=== PATIENT | male | born 1965 | race Caucasian/White ===

== ENCOUNTER → 2017-06-13 16:22 | Outpatient (CLI) | payer OTHER, SELFPAY ==
[2017-06-13 17:40] LABS: Absolute Lymphocyte Count 2.52 X10^3/ul (0.83-4.51); Absolute Neutrophil Count 4.5 X10^3/uL (2.0-7.7); Basophil# 0.03 X10^3/uL; Basophil% 0.4 % (0-1); Eosinophil# 0.14 X10^3/uL; Eosinophils% 1.9 % (0-5); Hematocrit 40.2 % (40-54); Hemoglobin 13.8 g/dl (13.0-16.5); Lymphocyte # 2.52 X10^3/ul (4.0); Lymphocyte % 33.3 % (19-41); Mean Corp Hgb Conc 34.3 g/gl (32-36); Mean Corpuscular Hgb 29.9 pg (27.0-32.0); Mean Corpuscular Volume 87.2 fL (80-94); Mean Platelet Vol. 8.7 fl (6.2-12.0); Monocyte% 5.3 % (0-10); Neutrophil # 4.45 X10^3/uL (2.7-7.7); Neutrophil % 58.8 % (47-70); POSITIVE COUNT NO; POSITIVE DIFFERENTIAL NO; POSITIVE MORPHOLOGY NO; Platelet Count 311 K/mm3 (150-450); RBC Distribution Width CV 12.9 % (11.6-14.6); RBC Distribution Width SD 40.1 fl (35.1-43.9); Red Blood Count 4.61 M/mm3 (4.6-6.2); White Blood Count 7.6 K/mm3 (4.4-11.0)
[2017-06-13 18:12] LABS: Anion Gap 7 (5-15); BUN 14 mg/dL (7-18); BUN/Creat Ratio 17.2 RATIO (10-20); Calcium,Total 8.9 mg/dL (8.5-10.1); Chloride 101 mmol/L (98-107); Creatinine, Serum 0.81 mg/dL (0.70-1.30); EST Glomerular Filtration Rate 107 mL/min (>60); Est Glom Filt Rate - Afr Amer 130 mL/min (>60); Glucose 80 mg/dL (74-106); Magnesium 2.3 mg/dL (1.6-2.6); Potassium 4.1 mmol/L (3.5-5.1); Sodium Level 138 mmol/L (136-145); T4 Total, Thyroxin 8.9 ug/dL (4.5-12.1); Thyroid Stim Hormone (TSH) 5.82 uIU/mL (0.358-3.74)
== END ==
PROVIDERS: Family Provider Family Medicine; PCP Family Medicine; Visit Provider Physician Assistant Medical
DX: I48.0 Paroxysmal atrial fibrillation (principal); I10 Essential (primary) hypertension
CPT/HCPCS: 36415; 80048; 83735; 84436; 84443; 85025

== ENCOUNTER 2017-06-16 22:36 | Emergency (ER) | payer OTHER, SELFPAY ==
[2017-06-16 22:38] VITALS: BP 155/87; PULSE 116; RESP 25; TEMP 36.4; O2SAT 97; BMI 38.0
[2017-06-16 22:39] VITALS: PULSE 97
--- NOTE | 2017-06-16 23:00 | EKG12_ITS ---
Test Reason : CP Blood Pressure : / mmHG Vent. Rate : 126 BPM Atrial Rate : 122 BPM P-R Int : 000 ms QRS Dur : 102 ms QT Int : 352 ms P-R-T Axes : 000 029 -31 degrees QTc Int : 509 ms Atrial fibrillation Nonspecific T wave abnormality Abnormal ECG Confirmed by TOMASA GRULLON, CHUCK ([id number]), film or videotape editor ALEM CAI ([id number]) on 06/18/2017 1:42:38 PM Referred By: Gris Anglin Confirmed By:CHUCK RANDOLPH MD
--- NOTE | 2017-06-16 23:00 | RAD_ITS ---
STUDY: X-RAY CHEST REASON FOR EXAM: Male, 51 years old. Chest pain TECHNIQUE: AP portable COMPARISON: July 13, 2014 FINDINGS: The lungs are clear and expanded. There is no demonstrated pleural abnormality. Normal size heart. Normal mediastinum and eli. Normal visualized pulmonary arteries. Normal visualized aortic arch and descending thoracic aorta. Normal visualized thoracic spine. Normal visualized ribs, clavicles, and shoulders. There is no demonstrated abnormality of the visualized soft tissue structures of the upper abdomen. RAD/Chest 1 View (Portable) IMPRESSION: No acute cardiopulmonary process. Electronically Signed: Bhavani Zeng MD at 23:35 EDT Tel , Service support ,
--- NOTE | 2017-06-16 23:06 | ED.VISSUMM ---
- ER Visit Summary Date of Service: 06/16/17 Chief Complaint: [] Chest pain/flutter History of Present Illness: The patient is a 51 M [] complaining of chest tightness and palpitations consistent with his previous history of atrial fibrillation. Patient reports he felt himself go from normal sinus rhythm to atrial fibrillation while watching a college final for basketball game at a local tavern while consuming alcohol. Denies shortness of breath. Does report that he is on Xarelto for previous history of atrial fibrillation. Denies any other complaints at this time. Physical Examination: [] Afebrile. Heart rate in the 115 average rate. Remainder of vitals unremarkable. Morbidly obese male in no acute distress. Cardiovascular exam reveals irregularly irregular rhythm. Lungs clear to auscultation. Abdomen is obese, soft, nontender. No lower extremity edema. Remainder of exam is unremarkable. Test Results: [] EKG is consistent with atrial fibrillation with a rate of 126. No ischemic or ectopic manifestations on the EKG. Chest x-ray: Negative Labs: Negative (include CBC, BMP, troponin). Repeat EKG: Normal sinus rhythm with a rate of 84. Emergency Department Course and Treatment: [] Patient placed on ceo and founder with oxygen. He received 2 sublingual nitroglycerin for chest pressure. Patient given 20 mg IV Cardizem bolus.This was unsuccessful in cardioverting the patient. Case was discussed with the patient's bung dropper. He had no objection to us electrically cardioverting the patient. Patient received 4 mg of Versed for procedural sedation and received 100 J via synchronized cardioversion. Repeat EKG reveals normal sinus rhythm with a rate of 84. Patient tolerated the procedure well. Was observed for an additional 45 minutes and was fully conscious. Reports his symptoms had resolved. Treatment Plan: [] Follow-up with PCP and bung dropper. Return if symptoms recur. Disposition: [] Discharge, stable. Impression: [] Atrial fibrillation Procedural sedation by ED physician Synchronous cardioversion by ED physician This note was generated with [employer] dictation software. It may contain incorrect words, spelling, and punctuation that were not noted in review of the chart prior to signing ED Disposition - Plan for ED Patient: Chief Complaint: Chest Pain Referrals: Win Beaver MD [Primary Care Provider] -
--- NOTE | 2017-06-16 23:10 | ED.DCSUM_ITS ---
- ER Visit Summary Date of Service: 06/16/17 Chief Complaint: [] Chest pain/flutter History of Present Illness: The patient is a 51 M [] complaining of chest tightness and palpitations consistent with his previous history of atrial fibrillation. Patient reports he felt himself go from normal sinus rhythm to atrial fibrillation while watching a college final for basketball game at a local tavern while consuming alcohol. Denies shortness of breath. Does report that he is on Xarelto for previous history of atrial fibrillation. Denies any other complaints at this time. Physical Examination: [] Afebrile. Heart rate in the 115 average rate. Remainder of vitals unremarkable. Morbidly obese male in no acute distress. Cardiovascular exam reveals irregularly irregular rhythm. Lungs clear to auscultation. Abdomen is obese, soft, nontender. No lower extremity edema. Remainder of exam is unremarkable. Test Results: [] EKG is consistent with atrial fibrillation with a rate of 126. No ischemic or ectopic manifestations on the EKG. Chest x-ray: Negative Labs: Negative (include CBC, BMP, troponin). Repeat EKG: Normal sinus rhythm with a rate of 84. Emergency Department Course and Treatment: [] Patient placed on cardiac nurse specialist with oxygen. He received 2 sublingual nitroglycerin for chest pressure. Patient given 20 mg IV Cardizem bolus.This was unsuccessful in cardioverting the patient. Case was discussed with the patient's re etcher. He had no objection to us electrically cardioverting the patient. Patient received 4 mg of Versed for procedural sedation and received 100 J via synchronized cardioversion. Repeat EKG reveals normal sinus rhythm with a rate of 84. Patient tolerated the procedure well. Was observed for an additional 45 minutes and was fully conscious. Reports his symptoms had resolved. Treatment Plan: [] Follow-up with PCP and re etcher. Return if symptoms recur. Disposition: [] Discharge, stable. Impression: [] Atrial fibrillation Procedural sedation by ED physician Synchronous cardioversion by ED physician This note was generated with G[employer] dictation software. It may contain incorrect words, spelling, and punctuation that were not noted in review of the chart prior to signing ED Disposition - Plan for ED Patient: Chief Complaint: Chest Pain Referrals: Win Beaver MD [Primary Care Provider] -
[2017-06-16 23:17] LABS: Absolute Lymphocyte Count 3.71 X10^3/ul (0.83-4.51); Absolute Neutrophil Count 4.4 X10^3/uL (2.0-7.7); Basophil# 0.02 X10^3/uL; Basophil% 0.2 % (0-1); Eosinophil# 0.16 X10^3/uL; Eosinophils% 1.8 % (0-5); Hematocrit 38.7 % (40-54); Hemoglobin 13.6 g/dl (13.0-16.5); Lymphocyte # 3.71 X10^3/ul (4.0); Lymphocyte % 41.8 % (19-41); Mean Corp Hgb Conc 35.1 g/gl (32-36); Mean Corpuscular Volume 85.4 fL (80-94); Mean Platelet Vol. 8.5 fl (6.2-12.0); Monocyte# 0.58 X10^3/uL; Monocyte% 6.5 % (0-10); Neutrophil # 4.38 X10^3/uL (2.7-7.7); Neutrophil % 49.4 % (47-70); Platelet Count 297 K/mm3 (150-450); RBC Distribution Width CV 12.8 % (11.6-14.6); Red Blood Count 4.53 M/mm3 (4.6-6.2); White Blood Count 8.9 K/mm3 (4.4-11.0)
[2017-06-16 23:18] LABS: POSITIVE COUNT NO; POSITIVE DIFFERENTIAL NO; POSITIVE MORPHOLOGY NO
[2017-06-16 23:23] VITALS: O2SAT 97
[2017-06-16 23:24] LABS: Anion Gap 10 (5-15); BUN 13 mg/dL (7-18); BUN/Creat Ratio 18.5 RATIO (10-20); Calcium,Total 7.8 mg/dL (8.5-10.1); Chloride 104 mmol/L (98-107); EST Glomerular Filtration Rate 126 mL/min (>60); Est Glom Filt Rate - Afr Amer 153 mL/min (>60); Estimated Creatinine Clearance 148.42 ml/min; Glucose 137 mg/dL (74-106); Potassium 3.6 mmol/L (3.5-5.1); Sodium Level 137 mmol/L (136-145)
[2017-06-16] MEDS: dilTIAZem 25 MG/5 ML Vial 20 MG IV BOLUS (23:27)
[2017-06-16 23:40] VITALS: BP 121/86; PULSE 86; RESP 13; O2SAT 97
[2017-06-16 23:48] VITALS: BP 116/75; PULSE 81
[2017-06-16 23:55] VITALS: BP 121/70; PULSE 92
[2017-06-17] VITALS (7 sets, daily range): BP systolic 117–129; BP diastolic 74–84; PULSE 73–103; RESP 12–19; O2SAT 95–97
[2017-06-17] MEDS: Midazolam 5 MG/ML Syringe 4 MG IV (00:11)
--- NOTE | 2017-06-17 00:18 | EKG12_ITS ---
Test Reason : REPEAT Blood Pressure : / mmHG Vent. Rate : 084 BPM Atrial Rate : 084 BPM P-R Int : 162 ms QRS Dur : 094 ms QT Int : 396 ms P-R-T Axes : 022 020 008 degrees QTc Int : 467 ms Normal sinus rhythm Normal ECG Confirmed by CHUCK RANDOLPH MD ([id number]), videotape editor ALEM CAI ([id number]) on 06/18/2017 1:42:20 PM Referred By: Gris Anglin Confirmed By:CHUCK RANDOLPH MD
--- NOTE | 2017-06-17 00:29 | ED.DEP ---
ED Disposition - Plan for ED Patient: Disposition: Home or Assisted Living Chief Complaint: Chest Pain Instructions: Discharge Instructions for Atrial Fibrillation Referrals: Win Beaver MD [Primary Care Provider] -
== END 2017-06-17 01:37 | disposition home or self-care (01) ==
PROVIDERS: Emergency Provider Emergency Medicine; Family Provider Family Medicine; PCP Family Medicine
DX: I48.91 Unspecified atrial fibrillation (principal); I10 Essential (primary) hypertension; E78.00 Pure hypercholesterolemia, unspecified; E66.01 Morbid (severe) obesity due to excess calories; Z79.01 Long term (current) use of anticoagulants; Z79.899 Other long term (current) drug therapy
CPT/HCPCS: 71045; 80048; 84484; 85025; 92960; 93005; 96374; 99285; J7050; A4216

== ENCOUNTER → 2017-06-22 06:01 | Outpatient (CLI) | payer OTHER, SELFPAY ==
--- NOTE | 2017-06-22 13:44 | STRESSREP ---
Stress Test Report Exercise myocardial perfusion stress test. 51-year-old man with a history of paroxysmal atrial fibrillation. Stress protocol: Resting EKG demonstrates sinus rhythm with a rate of 4 76 bpm resting blood pressure is 138/88 mmHg. The patient exercised according to the regular Joshua protocol for total duration of 9 minutes and 30 seconds. The maximum heart rate attained was 176 bpm which was 102% of the maximum predicted heart rate the maximum workload attained was 10.9 metabolic equivalents. He maintained sinus rhythm throughout the recording. At rest there were no ST or T-wave changes noted suggest ischemia at peak exercise upsloping ST changes only were noted with no meet the criteria for ischemia. No clinical angina was noted the test was terminated due to shortness of breath. Blood pressure was 198/88 mmHg. Myocardial perfusion protocol: 14.8 mCi of technetium 99m sestamibi was injected at rest. The patient exercised according to regular Joshua protocol for total duration of 9-1/2 minutes. At peak exercise 44.5 mCi of technetium 99m sestamibi was injected stress images were obtained stress and rest images were reconstructed and compared in the short axis vertical long and horizontal long axis. Gated images were also obtained. Perfusion SPECT analysis: Review of the stress images demonstrate normal uptake of tracer noted in all areas of the myocardium. The resting images similarly demonstrated normal uptake of tracer noted in all areas of the myocardium. No previous infarct is noted no ischemia is present. Gated SPECT analysis: The gated ejection fraction is 69%. Conclusion: Normal exercise myocardial perfusion stress test at a high workload. Excellent functional aerobic capacity. Preserved ejection fraction.
== END ==
PROVIDERS: Family Provider Family Medicine; PCP Family Medicine; Visit Provider Physician Assistant Medical
DX: I48.0 Paroxysmal atrial fibrillation (principal); I10 Essential (primary) hypertension
CPT/HCPCS: 78452; 93017; A9500; A4216

== ENCOUNTER → 2020-01-16 10:25 | Outpatient (CLI) | payer OTHER, SELFPAY ==
[2019-12-23 16:00] VITALS: BMI 37.7
--- NOTE | 2020-01-16 10:26 | STEWCON_ITS ---
Reason For Study: Paroxysmal Atrial Fibrillation Stress Results Protocol: Joshua Protocol WITH DEFINITY Maximum Predicted HR: 168 bpm Target HR: 143 bpm % Maximum Predicted HR: 88 % DurationHeart Rate Stage (mm:ss) (bpm) BP Comment Baseline 82 148/90No Chest Pain; 3 ML Diluted Definity Joshua Protocol Stage I 3:00 103 152/88No Chest Pain Joshua Protocol Stage II 3:00 122 160/78No Chest Pain Joshua Protocol Stage III 3:00 139 164/72No Chest Pain; Mild Dyspnea Joshua Protocol Stage IV 0:45 148 / No Chest Pain; Mild Dyspnea Recovery 109 130/72No Chest Pain Stress Duration: 9:45 mm:ss Maximum Stress HR: 148 bpm METS: 12 Baseline Echocardiogram Findings Stress Echo Wall motion Data Resting WM Intermediate WM Stress WM Interpretation Summary Exercise stress echo. 54-year-old man with a history of hypertension and atrial fibrillation. Stress protocol: Resting EKG demonstrates sinus rhythm with a rate of 82 bpm normal intervals are noted resting blood pressure is 148/90 mmHg. The patient exercised according to the regular Joshua protocol for a total duration of 9 minutes and 45 seconds. The maximum heart rate attained was 150 bpm which was 89% of maximum predicted heart rate the maximum workload was 12.5 metabolic equivalents. At rest there were no ST or T wave changes noted suggest ischemia peak exercise upsloping ST changes were noted with no meet the criteria for ischemia. The test was terminated due to the target heart rate being achieved. The resting blood pressure is 148/90 mmHg the peak blood pressure 164/72 mmHg. Stress echocardiographic images. Resting echocardiographic images obtained with Definity demonstrated an ejection fraction of 65%. With exercise there was improvement in the left ventricular systolic function with a peaking ejection fraction approximately 75%. No wall motion abnormalities were noted to suggest ischemia. Conclusion: Normal exercise stress echocardiogram with no EKG or echocardiographic criteria for ischemia at a high workload. Preserved ejection fraction. Excellent functional aerobic capacity. Ordering Physician: Lamin Ann Referring Physician: Win Beaver Performed By: Mendel Marinelli RCS
== END ==
PROVIDERS: PCP Family Medicine; Referring Provider Internal Medicine Cardiovascular Disease; Visit Provider Internal Medicine Cardiovascular Disease
DX: I48.0 Paroxysmal atrial fibrillation (principal)
CPT/HCPCS: 93017; 93350; Q9957; A4216; C8928

== ENCOUNTER → 2020-01-19 09:15 | Outpatient (CLI) | payer OTHER, SELFPAY ==
[2019-12-23 16:00] VITALS: BMI 37.7
--- NOTE | 2020-01-19 09:15 | LES_PTH ---
PATIENT: ALVIN JENSEN LOC: [facility] U#:[id number] AGE/SX: 59/M ROOM: RE01/19/[address]: Dr. Huy Crain MD : [id number] BED: DIS: SPEC #: [id number] RECD: 01/19/20 12:02 STATUS: PA ELIZABETH #: [id number] RUBI: 01/19/20 09:[address]: Huy Crain DEPT: SURGICAL PATHOLOGY RECD BY: Ricardo Camacho ENTERED: 01/19/20 13:28 SP TYPE: Lesion OTHR DR: Dr. Win Beaver MD Tissues: Palate, NOS Procedures: Surgery Specimen Level IV HEADER OPERATION: Excision palate lesion PRE-OP DIAGNOSIS: Papilloma of palate TISSUE SUBMITTED: Left soft palate MICROSCOPIC DIAGNOSIS Left soft palate lesion, excision: Fragments of squamous papilloma. SJ:jaclyn 01/20/20 MICROSCOPIC DESCRIPTION Slides are reviewed. GROSS DESCRIPTION Received in fixative is one container labeled with the patient's name and designated left soft palate. The specimen consists of two irregular fragments of light hairston soft tissue that in aggregate measure 0.6 x 0.3 x 0.1 cm. The specimen is totally submitted in one cassette. / SJ:jaclyn 01/19/20 TC:1 CPT: 57159
== END ==
PROVIDERS: PCP Family Medicine; Referring Provider Otolaryngology; Visit Provider Otolaryngology
DX: D10.39 Benign neoplasm of other parts of mouth (principal)
CPT/HCPCS: 88305

== ENCOUNTER → 2024-01-09 | Outpatient (CLI) | payer OTHER, SELFPAY ==
[2024-01-09 15:29] LABS: Absolute Lymphocyte Count 1.02 X10^3/uL (0.83-4.51); Absolute Neutrophil Count 6.1 X10^3/uL (2.0-7.7); Basophil# 0.06 X10^3/uL; Basophil% 0.7 % (0-1); Eosinophil# 0.16 X10^3/uL; Hemoglobin 11.7 g/dL (13.0-16.5); Lymphocyte # 1.02 X10^3/ul (0.83-4.51); Lymphocyte % 12.5 % (19-41); Mean Corp Hgb Conc 32.5 g/dL (32-36); Mean Corpuscular Volume 89.3 fL (80-94); Mean Platelet Vol. 8.5 fl (6.2-12.0); Monocyte# 0.61 X10^3/uL; Monocyte% 7.5 % (0-10); NRBC Flagged by Analyzer 0 % (0-5); Neutrophil # 6.14 X10^3/uL (2.7-7.7); Neutrophil % 75.6 % (47-70); Platelet Count 217 K/mm3 (150-450); RBC Distribution Width CV 13.8 % (11.6-14.6); RBC Distribution Width SD 44.8 fl (35.1-43.9); Red Blood Count 4.03 M/mm3 (4.6-6.2); White Blood Count 8.1 K/mm3 (4.4-11.0)
[2024-01-09 15:57] LABS: Anion Gap 8 (5-15); BUN 14 mg/dL (7-18); BUN/Creat Ratio 15.2 RATIO (10-20); Calcium,Total 8.6 mg/dL (8.5-10.1); Chloride 105 mmol/L (98-107); Creatinine, Serum 0.92 mg/dL (0.70-1.30); EST Glomerular Filtration Rate 91 mL/min (>60); Est Glom Filt Rate - Afr Amer 110 mL/min (>60); Glucose 92 mg/dL (74-106); Potassium 3.8 mmol/L (3.5-5.1); Sodium Level 138 mmol/L (136-145)
[2024-01-10 03:15] LABS: BNP,B-Type NATRIURETIC PEPTIDE 49.6 pg/mL (0-100)
== END | disposition home or self-care (01) ==
LOC: LAB 14:12
PROVIDERS: PCP Family Medicine; Referring Provider Nurse Practitioner Gerontology; Visit Provider Nurse Practitioner Gerontology
DX: R06.09 Other forms of dyspnea (principal)
CPT/HCPCS: 36415; 80048; 83880; 85025

== ENCOUNTER → 2024-01-30 | Outpatient (CLI) | payer OTHER, SELFPAY ==
--- NOTE | 2024-01-30 06:25 | ECHOCS_ITS ---
Reason For Study: DYSPNEA/SOB Procedure This was a 2D Doppler, Color Flow transthoracic echocardiogram. Exam performed in department. Left Ventricle Normal LV size. Left ventricular systolic function is normal. The left ventricular ejection fraction is 60 %. No regional wall motion abnormalities noted. Right Ventricle Normal RV size. Normal systolic function. Atria Normal left atrium. Normal right atrium. Mitral Valve Normal mitral valve. Tricuspid Valve Normal tricuspid valve. Aortic Valve The aortic valve is not well visualized. Pulmonic Valve The pulmonic valve is not well visualized. Great Vessels Normal aortic root. The pulmonary artery is normal size. Normal inferior vena cava. Pericardium/Pleural No pericardial effusion. Medication Diluted definity 2.0ml given slow IV push to enhance endocardial definition. MMode/2D Measurements & Calculations LVIDd: 5.3 cm IVSd: 1.1 cm Ao root diam: 3.5 cm LVIDs: 3.1 cm LVPWd: 1.0 cm RVDd: 3.7 cm FS: 40.6 % asc Aorta Diam: 3.8 cm LAV(MOD-bp): 67.6 ml LVAd ap4: 39.1 cm2 LAV(MOD-bp) Indexed: 26.1 ml/m2 LVLd ap4: 9.5 cm LAV(MOD-sp2): 62.5 ml EDV(MOD-sp4): 133.6 ml LAV(MOD-sp4): 73.3 ml EDV(sp4-el): 136.0 ml LVAs ap4: 22.1 cm2 LVLs ap4: 8.3 cm ESV(MOD-sp4): 50.1 ml ESV(sp4-el): 49.9 ml EF(MOD-sp4): 62.5 % EF(sp4-el): 63.3 % SV(MOD-sp4): 83.5 ml SV(sp4-el): 86.0 ml LA A4 area: 25.1 cm2 SI(MOD-sp4): 32.3 ml/m2 LA dimension(2D): 4.5 cm RA A4 area: 19.4 cm2 TAPSE: 2.6 cm Time Measurements MV dec time: 0.19 sec Doppler Measurements & Calculations MV E max facundo: 87.8 cm/sec Lat Peak E' Facundo: 12.8 cm/sec Med Peak E' Facundo: 11.9 cm/sec MV A max facundo: 85.3 cm/sec E/E' lat: 6.8 E/E' med: 7.4 MV E/A: 1.0 MV V2 max: 101.0 cm/sec MV P1/2t max facundo: 109.0 cm/sec Ao V2 max: 143.3 cm/sec MV max P.1 mmHg MV P1/2t: 63.4 msec Ao max P.2 mmHg MV V2 mean: 58.1 cm/sec MV dec slope: 503.6 cm/sec2 Ao V2 mean: 94.7 cm/sec MV mean P.6 mmHg MVA(P1/2t): 3.5 cm2 Ao mean P.0 mmHg MV V2 VTI: 23.7 cm Ao V2 VTI: 26.1 cm AV (velocity ratio): 0.93 LV V1 max: 104.3 cm/sec PA V2 max: 127.4 cm/sec TR max facundo: 244.0 cm/sec LV V1 max P.4 mmHg PA V2 mean: 89.5 cm/sec TR max P.8 mmHg LV V1 mean P.5 mmHg LV V1 mean: 74.9 cm/sec LV V1 VTI: 24.2 cm ECHO/Echo Complete W/ Contrast Interpretation Summary Normal LV size. Left ventricular systolic function is normal. The left ventricular ejection fraction is 60 %. Structurally normal valves. Ordering Physician: Teresa Hernandez Referring Physician: Jef Jones Performed By: Caitlyn Elena RDCS, RVT
--- NOTE | 2024-01-30 17:20 | STRESSREP ---
Stress Test Report Exercise myocardial perfusion stress test. 58-year-old man with a history of atrial fibrillation on flecainide therapy Stress protocol: Resting EKG demonstrates normal sinus rhythm with a rate of 74 bpm resting blood pressure is 148/82 mmHg. The patient exercised according to the regular Joshua protocol for a total duration of 8 minutes attaining a maximum heart rate of 139 bpm which was 84% of maximum predicted heart rate; the maximum workload was 10.1 metabolic equivalents. At rest there were no ST or T wave changes noted to suggest ischemia and at peak exercise upsloping ST changes only were noted which did not meet the criteria for ischemia. No clinical angina was noted the test was terminated due to the target heart rate being achieved/fatigue. The peak blood pressure was 128/60 mmHg. Rate-pressure product was 20,001. Myocardial perfusion protocol. 14.9 mCi of technetium 99m sestamibi was injected at rest. The patient exercised according to regular Joshua protocol for total duration of 8 minutes and at peak exercise 44.8 mCi of technetium 99m sestamibi was injected stress images were obtained stress and rest images were reconstructed in comparing the short axis vertical long and horizontal long axis. Gated images were also obtained. Perfusion SPECT analysis: Review of the stress images demonstrate normal uptake of tracer noted in all areas of the myocardium. The resting images similarly demonstrate normal uptake of tracer noted in all areas of the myocardium. No areas of reversibility are noted to suggest ischemia no previous infarct was noted. Gated SPECT analysis: The gated ejection fraction is 68%. Conclusion: Normal exercise myocardial perfusion stress test at a high workload Preserved ejection fraction.
== END | disposition home or self-care (01) ==
LOC: CVS 06:23
PROVIDERS: PCP Family Medicine; Referring Provider Nurse Practitioner Gerontology; Visit Provider Nurse Practitioner Gerontology
DX: Z51.81 Encounter for therapeutic drug level monitoring (principal); R06.09 Other forms of dyspnea; Z79.899 Other long term (current) drug therapy
CPT/HCPCS: 78452; 93017; 93306; A9500; Q9957; A4216; C8929